=== PATIENT | male | born 1960 | race American Indian/Alaskan Native ===

== ENCOUNTER → 2018-11-04 | Outpatient (CLI) | payer BC ==
[~2018-11-04] MED LIST: ACTOS15 MG PO; AMARYL4 MG PO; ASA5UEC PO; FOLIC ACID1 MG PO; JANUMET 50-1,01 EACH PO; JANUVIA100 MG PO; JARDIANCE10 MG PO; KLOR-CON 1010 MEQ PO; LASIX 40 MG TAB40 M2 PO; LISINOPRIL10 MG PO; LOPRESSOR25 PO; METHOTREXATE 22.5 M1 PO; POTASSIUM CHLO10 ME1 PO; PRAVACHOL 20 MG20 M1 PO; RESTORIL30 MG PO; SYNTHROID75 MCG PO; VITAMIN D350000 UNIT PO
--- NOTE | ~2018-11-04 | 2DMMODE ---
[facility] [place] [address] 2 D/M-MODE ECHOCARDIOGRAM Name: JUAN ANTONIO SABILLON Room #: [facility]#: [id number] Admission: 11/04/18 Attend Phys: Noman Thornton, Discharge: Date of : 60 Date of Service: 11/04/18 1656 Report #: [id number] THIS REPORT FOR: //name// APPROVED REPORT Study performed: 11/04/2018 15:06:24 EXAM: Comprehensive 2D, Doppler, and color-flow Echocardiogram Patient Location: Out-Patient Status: routine BSA: 1.54 HR: 85 bpm BP: 128/80 mmHg Rhythm: NSR Other Information Study Quality: Adequate Indications Dilated cardiomyopathy, CHF. 2D Dimensions RVDd: 33.06 mm IVSd: 8.45 (7-11mm) LVOT Diam: 18.83 (18-24mm) LVDd: 39.81 mm PWd: 7.58 (7-11mm) LVDs: 26.87 (25-40mm) Aortic Root: 28.29 mm Volumes Left Atrial Volume (Systole) Single Plane 4CH: 18.35 mL Single Plane 2CH: 31.14 mL LA ESV Index: 18.00 mL/m2 Aortic Valve AoV Peak Thiago.: 1.43 m/s AO Peak Gr.: 8.19 mmHg LVOT Max P.79 mmHg LVOT Max V: 0.97 m/s VICKI Vmax: 1.89 cm2 Mitral Valve E/A Ratio: 0.8 MV Decel. Time: 157.94 ms MV E Max Thiago.: 0.72 m/s [facility] [address] [place] [address] 2 D/M-MODE ECHOCARDIOGRAM Name: JUAN ANTONIO SABILLON Room #: [facility]#: [id number] Admission: 11/04/18 Attend Phys: Noman Thornton, Discharge: Date of : 60 Date of Service: 11/04/18 1656 Report #: [id number] MV A Thiago.: 0.91 m/s MV PHT: 45.80 ms IVRT: 78.43 ms Pulmonary Valve PV Peak Thiago.: 1.07 m/s PV Peak Gr.: 4.56 mmHg Pulmonary Vein P Vein S: 0.77 m/s P Vein A: 0.36 m/s P Vein D: 0.46 m/s P Vein A Dur.: 92.3 msec P Vein S/D Ratio: 1.67 Tricuspid Valve RAP Estimate: 5.00 mmHg Left Ventricle The left ventricle is normal size. There is normal LV segmental wall motion. There is normal left ventricular wall thickness. Left ventricular systolic function is normal. LVEF is 55-60%. Mild diastolic dysfunction is present (impaired relaxation pattern). Right Ventricle The right ventricle is normal size. The right ventricular systolic function is normal. Atria The left atrium size is normal. The right atrium size is normal. Aortic Valve The aortic valve is normal in structure. No aortic regurgitation is present. There is no aortic valvular stenosis. Mitral Valve The mitral valve is normal in structure. Trace mitral regurgitation. Tricuspid Valve The tricuspid valve is normal in structure. Trace tricuspid regurgitation. Pulmonic Valve Pulmonic valve is not well visualized. [employer]els [facility] [place] [address] [place] [address] 2 D/M-MODE ECHOCARDIOGRAM Name: JUAN ANTONIO SABILLON Room #: [facility] Ha.#: [id number] Admission: 11/04/18 Attend Phys: Noman Thornton, Discharge: Date of : 60 Date of Service: 11/04/181655 Report #: [id number] The aortic root is normal in size. Ascending aorta is not well visualized. IVC is normal in size and collapses >50% with inspiration. Pericardium There is no pericardial effusion. <Conclusion> LVEF is 55-60%. <ELECTRONICALLY SIGNED> By: Carter Mcqueen MD, FACC 11/04/181655 55 1656 Carter Mcqueen MD, FACC /INF
== END ==
LOC: CV 08:42
DX: I42.0 Dilated cardiomyopathy (principal); I50.9 Heart failure, unspecified